=== PATIENT | male | born 1955 | race Caucasian/White ===

== ENCOUNTER 2017-01-09 07:02 | Day surgery (SDC) | payer BC, OTHER ==
[~2017-01-09 07:02] MED LIST: Dextrose 5%-Lactated Ringers 1,000 ML IV SCH; ceFAZolin 2 GM in Premix Bag 1 BAG IV ONE; ceFAZolin 2 GM in Sodium Chloride 0.9% 50 ML IV ONE
[2017-01-09] MEDS ORDERED: Bupivacaine 0.5% 50 ML MDV ONE (07:06)
[2017-01-09] MEDS ORDERED: Lidocaine 1% with EPINEPHrine 1:100,000 50 ML MDV ONE (07:06)
[2017-01-09] MEDS ORDERED: Midazolam 1 MG/ML 2 ML SDV ONE ×2 (08:00→08:20)
[2017-01-09] MEDS ORDERED: Propofol 200 MG/20 ML SDV ONE ×2 (08:00→08:21)
[2017-01-09] MEDS ORDERED: fentaNYL 100 MCG/2 ML SDV ONE (08:00)
[2017-01-09] MEDS ORDERED: Dextrose 5%-Lactated Ringers 1,000 ML IV SCH (08:30)
[2017-01-09] MEDS ORDERED: ceFAZolin 2 GM in Premix Bag 1 BAG IV ONE (09:00)
[2017-01-09] MEDS ORDERED: ceFAZolin 2 GM in Sodium Chloride 0.9% 50 ML IV ONE (09:00)
[2017-01-09 10:35] VITALS: BP 117/79
--- NOTE | 2017-01-12 07:57 | OR ---
DATE OF PROCEDURE: 01/09/2017 PREOPERATIVE DIAGNOSIS: Reducible left inguinal hernia. POSTOPERATIVE DIAGNOSIS: Reducible indirect left inguinal hernia. PROCEDURE: Repair of reducible indirect left inguinal hernia with an extra- large PerFix mesh plug and patch. ANESTHESIA: IV anesthesia with monitored anesthesia care. INDICATIONS: This 61-year-old white male was lifting a heavy piece of wood when he felt pain in his left groin. A few days later, he became aware of a reducible mass in his left groin. He denies other predisposing factors for hernia formation other than occasional cough. His last colonoscopy was three years ago. There are no signs or symptoms of incarceration or obstruction. He was admitted today for repair of his left inguinal hernia with a mesh plug and patch. I counseled him for surgery including risks and alternatives, and he gave his informed consent to proceed. DESCRIPTION OF PROCEDURE: The patient was placed in the left lateral decubitus position. IV anesthesia was administered by the Anesthesia Service. Time-out was held. Lidocaine 1% with epinephrine in a 50:50 mix with 0.5% Marcaine was infiltrated about the left groin. A left groin incision was made 2 cm superior and medial to the inguinal ligament. This was carried deep using Bovie cautery to the external oblique. The external oblique was opened parallel to course of its fibers from the internal to the external ring. The spermatic cord was mobilized and a Melani drain was placed about it. The ilioinguinal nerve was identified and divided. The floor appeared to be intact. The cremasteric fibers were longitudinally to reveal an indirect hernia sac. This was dissected free back to the peritoneal reflection and reduced back into the abdominal cavity. The defect was very large. We obtained an extra-large PerFix mesh plug manufactured by [employer]. The plug was placed down through the hernia defect and anchored to the underside of the fascia with horizontal mattress stitches of 2-0 Vicryl. The internal leaves were used to anchor. The onlay patch was obtained, cut to appropriate length, and placed over the inguinal floor. It was anchored to itself around the spermatic cord with a horizontal mattress stitch of 2-0 Vicryl. All looked well. The external oblique was closed with a running stitch of 3-0 Vicryl. Interrupted stitches were placed to approximate Mary Jane's fascia using 3-0 Vicryl, 4-0 Vicryl using a subcuticular stitch was placed to approximate the skin. Dermabond was applied. The patient tolerated the procedure well and was brought to the recovery room in good condition. Xavier Garsia MD /[id number] MTDD
== END 2017-01-09 11:03 ==
LOC: JP.SDS 07:02
PROVIDERS: ATTEND Surgery
DX: K40.90 Unilateral inguinal hernia, without obstruction or gangrene, not specified as recurrent (principal); F17.210 Nicotine dependence, cigarettes, uncomplicated; Z98.890 Other specified postprocedural states
CPT/HCPCS: 49505; J0690; J2250; J2704; J3010; J7042; J7050; C1781

== ENCOUNTER 2019-09-05 06:00 | Day surgery (SDC) | payer BC ==
[2019-09-05] MEDS ORDERED: Bupivacaine 0.5% 50 ML MDV ONE (06:36)
[2019-09-05] MEDS ORDERED: Lidocaine 1% with EPINEPHrine 1:100,000 50 ML MDV ONE (06:37)
[2019-09-05] MEDS ORDERED: Dextrose 5%-Lactated Ringers 1,000 ML IV SCH (07:00)
[2019-09-05] MEDS ORDERED: ceFAZolin 2 GM in Premix Bag 1 BAG IV ONE ×2 (07:00→07:15)
[2019-09-05] MEDS ORDERED: Midazolam 1 MG/ML 2 ML SDV ONE (07:05)
[2019-09-05] MEDS ORDERED: fentaNYL 100 MCG/2 ML SDV ONE ×2 (07:05→07:41)
[2019-09-05] MEDS ORDERED: Propofol 200 MG/20 ML SDV ONE ×3 (07:05→08:05)
[2019-09-05] MEDS ORDERED: Ketorolac 60 MG/2 ML SDV ONE (07:44)
[2019-09-05 08:31] VITALS: PULSE 77
[2019-09-05 09:36] VITALS: BP 126/78
--- NOTE | 2019-09-07 14:04 | OR ---
DATE OF PROCEDURE: 09/05/2019 SURGEON: Ayaan Alvarez MD PREOPERATIVE DIAGNOSIS: Right inguinal hernia. POSTOPERATIVE DIAGNOSES: 1. Incarcerated right inguinal hernia. 2. Right ilioinguinal nerve and iliohypogastric nerve at risk for scar entrapment. OPERATIVE PROCEDURES: Right inguinal exploration with: 1. Repair of incarcerated right inguinal hernia with mesh (93136). 2. Excision of portion of right ilioinguinal nerve (97039). 3. Excision of portion of right iliohypogastric nerve (70037). ANESTHESIA: Local plus IV sedation. HANDS HANGER: Maria Eugenia Nicholson PA-C INDICATIONS FOR PROCEDURE: This is a 64-year-old presenting with an increasingly symptomatic right inguinal hernia. Previously, the patient had undergone a mesh repair per Dr. Garsia on the left side. The plan is to proceed with a mesh plug repair to this hernia and that we will often excise portions of nerves in the area that might be entrapped in the scar, causing chronic pain with resulting areas of anesthesia around that, was gone over with the patient. Otherwise, potential risks including bleeding, infection, injury to underlying viscera, problems with the hernia recurring, chronic pain developing were all reviewed, and the patient wishes to proceed. DETAILS OF PROCEDURE: The patient was taken to the operating room and placed in a supine position. After IV sedation was administered, the abdomen and groin areas were prepped and draped and then the right inguinal area anesthetized with 1% lidocaine mixed with Marcaine. A standard inguinal incision was made and carried down through the skin and subcutaneous tissue and through the external oblique aponeurosis. Subaponeurotic flaps were then raised superiorly and inferiorly. The patient was noted to have 2 components of the hernia. The largest was that of an indirect hernia, which was incarcerated and this seemed to contain some perivesical fat, along with what appeared to be the tip of the cecum. The indirect hernia sac was then dissected back down to the level of the internal ring, after division of the cremasteric fibers, and at that point, it appeared to be reducible. Medially, the patient also had a non-incarcerated direct inguinal hernia. The transversalis fascia overlying this was incised, and dissection underneath the conjoint tendon laterally, superiorly, and medially was then undertaken. At this point, we decided to use 2 mesh plugs. The first one was a large plug placed into the medial area of the hernia. This was affixed to Jose Alejandro's ligament with some titanium tacking screws and then to the underside of the conjoint tendon medially, superiorly, and laterally with horizontal mattress sutures of 2-0 Vicryl stitch. The indirect site was then treated with a new mesh plug placed through the internal ring, and this was sutured to the conjoint tendon superiorly, medially, and laterally, and then to the shelving portion of the inguinal ligament inferiorly with 2-0 Vicryl stitch as well. The conjoint tendon was fixed to the shelving portion of the inguinal ligament with a 0 Vicryl stitch, passed beginning medially, extending to the level of the internal ring. Flat portion of the mesh plug system was then placed over this area and fixed pubic tubercle with titanium tacking screw in the area lateral to the internal ring with 2-0 Vicryl stitch. Prior to placement of the flat portion, it was evident the ilioinguinal and iliohypogastric nerves were both covered by the mesh and likely being entrapped by quite a bit of scar resulting in a high likelihood of chronic pain. These nerves were then excised out to the lateral aspect of the incision as well. The external oblique aponeurosis was then approximated with 3-0 Vicryl stitch, the subcutaneous tissue with 4-0 Vicryl stitch, and the skin with a 4-0 Vicryl subcuticular stitch. Dressing was applied. The patient was taken to the recovery room in satisfactory condition. Physician digital sales assistant, Maria Eugenia Nicholson, played an essential role in assisting in this case, helping to position the patient, retract structures as needed, as well as suturing and cutting sutures when indicated. Her presence improved patient safety and decreased the operative time. Ayaan Alvarez MD /[id number]
== END 2019-09-05 09:40 | disposition home or self-care (01) ==
LOC: JP.SDS 06:00
PROVIDERS: ATTEND Surgery
DX: K40.30 Unilateral inguinal hernia, with obstruction, without gangrene, not specified as recurrent (principal); G57.81 Other specified mononeuropathies of right lower limb; F17.210 Nicotine dependence, cigarettes, uncomplicated
CPT/HCPCS: 49507; 64784; C1713; C1781; J0690; J1885; J2250; J2704; J3010; J3490; J7121; 88302